=== PATIENT | male | born 2000 | race Caucasian/White ===

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

== ENCOUNTER 2019-11-18 16:16 | Inpatient (IN) | payer MEDICAID ==
[~2019-11-18] VITALS: Ht 175.3 cm; Wt 89.6 kg
[2019-11-18 17:04] LABS: Basophils # (auto) 0.1 10 ^3/uL (0-0.2); Basophils % (auto) 0.7 % (0.0-2.0); Eosinophils # (auto) 0.2 10 ^3/uL (0-0.8); Hematocrit 44.3 % (41.0-53.0); Hemoglobin 14.7 g/dL (13.5-17.5); Lymphocytes # (auto) 1.7 10 ^3/uL (0.4-5.4); Lymphocytes % (auto) 15.3 % (10.0-50.0); Mean Corpuscular Hemoglobin 28.9 pg (28.0-32.0); Mean Corpuscular Hgb Conc. 33.2 g/dL (32.0-36.0); Mean Corpuscular Volume 87.1 fL (80.0-100.0); Monocytes # (auto) 1.1 10 ^3/uL (0-1.3); Monocytes % (auto) 9.4 % (0.0-12.0); Neutrophils # (auto) 8.2 10 ^3/uL (1.6-8.6); Neutrophils % (auto) 72.6 % (37.0-80.0); Nucleated Red Blood Cells % 0.1 %; Platelet Count (auto) 254 10^3/uL (140-450); Red Blood Cells 5.08 10^6/uL (4.5-5.90); Red Cell Distribution Width 13.9 % (11.8-14.3); White Blood Cell 11.3 10^3/uL (4.4-10.8)
[2019-11-18 17:19] LABS: Albumin 3.6 g/dL (3.4-5.0); Calcium 9.3 mg/dL (8.5-10.1); Potassium 3.6 mmol/L (3.5-5.1)
[2019-11-18 17:22] LABS: BUN/Creatinine Ratio 8.6; Bilirubin, Total 0.9 mg/dL (0.2-1.0); Total Protein 8.2 g/dL (6.4-8.2)
[2019-11-18] MEDS ORDERED: MORPHINE SULFATE 4 MG/ML SYR/VIAL IV ONE (18:30)
[2019-11-18] MEDS ORDERED: ONDANSETRON HCL 4 MG/2 ML VIAL IV ONE (18:30)
[2019-11-18] MEDS ORDERED: PIPERACILLIN-TAZOB 3.375GM 100 ML IV ONE (18:30)
[2019-11-18] MEDS ORDERED: SODIUM CHLORIDE 0.9% 1,000 ML IV ONE (18:30)
[2019-11-18 19:04] LABS: INR 1.06 (0.9-1.15); Partial Thromboplastin Time 32.2 sec (23.64-32.05)
[2019-11-18] MEDS ORDERED: ONDANSETRON HCL 4 MG/2 ML VIAL IV PRN (19:45)
[2019-11-18] MEDS ORDERED: DOCUSATE SOD 100 MG CAP PO PRN (19:45)
[2019-11-18] MEDS ORDERED: NITROGLYCERIN 0.4 MG SL TAB SL PRN (19:45)
[2019-11-18] MEDS ORDERED: ALUM & MAG HYDROX-SIMETH LIQ(MAALOX) 30 ML PO PRN (19:45)
[2019-11-18] MEDS ORDERED: MORPHINE SULF INJ 2 MG/ML SYRINGE 1ML IV PRN (19:45)
[2019-11-18] MEDS ORDERED: HYDROcodone-ACET 5/325MG TAB PO PRN (19:45)
[2019-11-18 21:05] VITALS: BP 120/65
[2019-11-18 21:08] LABS: Urine Bacteria NONE SEEN /hpf (None Seen); Urine Blood Negative /uL (Negative); Urine Mucus FEW (None Seen); Urine Specific Gravity 1.028 (1.001-1.035); Urine WBC 1 /hpf (0 - 3)
[2019-11-18 21:21] LABS: Amphetamine Screen, Urine POSITIVE (NEGATIVE); Barbiturate Scree,Urine NEGATIVE (NEGATIVE); Benzodiazephine Screen, Urine NEGATIVE (NEGATIVE); Cannabinoid Screen, Urine POSITIVE (NEGATIVE); Cocaine Screen, Urine NEGATIVE (NEGATIVE); Opiate Scree,Urine NEGATIVE (NEGATIVE); Phencyclidine Screen, Urine NEGATIVE (NEGATIVE)
[2019-11-18] MEDS: metroNIDAZOLE 500MG/100ML 100 ML IV SCH (23:18)
[2019-11-18] MEDS: D5W/LACTATED RINGERS 1,000 ML IV SCH (23:18)
[2019-11-19 05:00] VITALS: BP 11/56
[2019-11-19] MEDS: D5W/LACTATED RINGERS 1,000 ML IV SCH (05:19)
[2019-11-19] MEDS: metroNIDAZOLE 500MG/100ML 100 ML IV SCH (05:20)
[2019-11-19 07:15] LABS: Basophils # (auto) 0.1 10 ^3/uL (0-0.2); Basophils % (auto) 0.5 % (0.0-2.0); Eosinophils # (auto) 0.3 10 ^3/uL (0-0.8); Eosinophils % (auto) 3.3 % (0.0-7.0); Hematocrit 39.9 % (41.0-53.0); Hemoglobin 13.8 g/dL (13.5-17.5); Lymphocytes # (auto) 1.6 10 ^3/uL (0.4-5.4); Lymphocytes % (auto) 15.7 % (10.0-50.0); Mean Corpuscular Hgb Conc. 34.7 g/dL (32.0-36.0); Mean Corpuscular Volume 86.5 fL (80.0-100.0); Monocytes % (auto) 9.9 % (0.0-12.0); Neutrophils % (auto) 70.6 % (37.0-80.0); Platelet Count (auto) 222 10^3/uL (140-450); Red Blood Cells 4.61 10^6/uL (4.5-5.90); Red Cell Distribution Width 13.8 % (11.8-14.3); White Blood Cell 9.9 10^3/uL (4.4-10.8)
[2019-11-19 07:36] LABS: Potassium 3.4 mmol/L (3.5-5.1)
[2019-11-19 07:43] LABS: INR 1.07 (0.9-1.15); Partial Thromboplastin Time 34.5 sec (23.64-32.05)
[2019-11-19 07:44] LABS: BUN/Creatinine Ratio 6.9; Calcium 8.3 mg/dL (8.5-10.1); Magnesium 2.2 mg/dL (1.6-2.6); Phosphorus 2.8 mg/dL (2.5-4.90); Total Protein 7.1 g/dL (6.4-8.2)
[2019-11-19] MEDS ORDERED: ceFAZolin 1GM/50ML 50 ML IV ONE (08:09)
[2019-11-19] MEDS ORDERED: POVIDONE IODINE 10 % TOPICAL OINT 30GM TOP ONE (08:13)
[2019-11-19] MEDS ORDERED: PHENYLEPHRINE HCL 10 MG/ML VL IV ONE (08:25)
[2019-11-19] MEDS ORDERED: NEOSTIGMINE 1 MG/ML INJ (10mg/10ML VIAL) IV ONE (08:25)
[2019-11-19] MEDS ORDERED: GLYCOPYRROLATE 0.2 MG/ML 1ML VIAL IV ONE (08:25)
[2019-11-19] MEDS ORDERED: fentaNYL CITRATE 100 MCG/2 ML VL ONE (08:36)
[2019-11-19] MEDS ORDERED: MIDAZOLAM HCL 1MG/1ML-2 ML VIAL ONE (08:36)
[2019-11-19] MEDS ORDERED: MEPERIDINE HCL (50 MG/ML) 1 ML VIAL ONE (08:37)
[2019-11-19] MEDS ORDERED: DexAMETHasone SOD PHOS 10MG/1ML VIAL INJ ONE (08:55)
[2019-11-19] MEDS ORDERED: PROPOFOL 10 MG/ML 20 ML IV ONE (08:55)
[2019-11-19 09:00] VITALS: BP 110/58
[2019-11-19] MEDS ORDERED: cefTRIAXone 1GM/50ML D5W 50 ML IV SCH (09:00)
[2019-11-19] MEDS ORDERED: ROCURONIUM 10MG/ML 10ML VIAL IV ONE (09:00)
[2019-11-19] MEDS: HYDROmorphone HCL 2 MG/ML VL IV PRN ×6 (09:58→20:31)
[2019-11-19] MEDS ORDERED: LABETALOL HCL 5 MG/ML 4ML SYRINGE IV PRN (10:00)
[2019-11-19] MEDS ORDERED: ENOXAPARIN SOD 40 MG/0.4 ML SYRINGE SC SCH (10:00)
[2019-11-19] MEDS ORDERED: D5W/SOD CHL 0.45%/KCL 20MEQ 1,000 ML IV SCH (10:00)
[2019-11-19] MEDS ORDERED: KETOROLAC TROMETH 15 mg/ml 1ML VL IV ONE (10:00)
[2019-11-19] MEDS ORDERED: ONDANSETRON HCL 4 MG/2 ML VIAL IV PRN ×2 (10:00)
[2019-11-19] MEDS ORDERED: HYDROmorphone HCL 2 MG/ML VL IV PRN (10:00)
[2019-11-19] MEDS ORDERED: ePHEDrine SULFATE 50 MG/ML AMP IV PRN (10:00)
[2019-11-19] MEDS ORDERED: MORPHINE SULFATE 4 MG/ML SYR/VIAL IV PRN (10:00)
[2019-11-19] MEDS ORDERED: MIDAZOLAM HCL 1MG/1ML-2 ML VIAL IV PRN (10:00)
[2019-11-19] MEDS: ceFAZolin 1GM/50ML 50 ML IV SCH ×2 (12:34→23:00)
[2019-11-19 13:00] VITALS: BP 128/73
[2019-11-19] MEDS ORDERED: ACETAMINOPHEN 500 MG TAB PO PRN (13:00)
[2019-11-19] MEDS ORDERED: metroNIDAZOLE 500MG/100ML 100 ML IV SCH (14:00)
[2019-11-19] MEDS: D5W/SOD CHL 0.45%/KCL 20MEQ 1,000 ML IV SCH ×2 (14:00→23:37)
[2019-11-19 16:48] VITALS: BP 127/71
[2019-11-19 22:00] VITALS: BP 109/57
[2019-11-20] MEDS: TEMAZEPAM 15 MG CAP PO PRN ×2 (01:32→21:59)
[2019-11-20] MEDS: HYDROcodone-ACET 5/325MG TAB PO PRN (01:33)
[2019-11-20] MEDS: HYDROmorphone HCL 2 MG/ML VL IV PRN ×5 (02:45→18:53)
[2019-11-20 05:00] VITALS: BP 112/59
[2019-11-20] MEDS: ceFAZolin 1GM/50ML 50 ML IV SCH ×3 (05:56→21:53)
[2019-11-20 06:56] LABS: Basophils # (auto) 0 10 ^3/uL (0-0.2); Basophils % (auto) 0.2 % (0.0-2.0); Eosinophils # (auto) 0.1 10 ^3/uL (0-0.8); Eosinophils % (auto) 0.5 % (0.0-7.0); Hematocrit 37.5 % (41.0-53.0); Hemoglobin 12.8 g/dL (13.5-17.5); Lymphocytes # (auto) 1.3 10 ^3/uL (0.4-5.4); Mean Corpuscular Hemoglobin 29.7 pg (28.0-32.0); Mean Corpuscular Hgb Conc. 34.2 g/dL (32.0-36.0); Mean Corpuscular Volume 86.7 fL (80.0-100.0); Monocytes % (auto) 9.3 % (0.0-12.0); Platelet Count (auto) 226 10^3/uL (140-450); Red Blood Cells 4.32 10^6/uL (4.5-5.90); Red Cell Distribution Width 13.7 % (11.8-14.3); White Blood Cell 10.4 10^3/uL (4.4-10.8)
[2019-11-20 07:16] LABS: BUN/Creatinine Ratio 7.6; Calcium 8.5 mg/dL (8.5-10.1); Potassium 3.8 mmol/L (3.5-5.1)
[2019-11-20 09:00] VITALS: BP 105/53
[2019-11-20] MEDS: D5W/SOD CHL 0.45%/KCL 20MEQ 1,000 ML IV SCH (10:41)
[2019-11-20 12:31] VITALS: BP 104/56
[2019-11-20 17:00] VITALS: BP 122/71
[2019-11-20 21:59] VITALS: BP 127/78
[2019-11-21] MEDS: HYDROmorphone HCL 2 MG/ML VL IV PRN ×5 (00:10→22:39)
[2019-11-21 05:00] VITALS: BP 131/69
[2019-11-21] MEDS: ceFAZolin 1GM/50ML 50 ML IV SCH ×3 (05:28→22:00)
[2019-11-21] MEDS: D5W/SOD CHL 0.45%/KCL 20MEQ 1,000 ML IV SCH ×4 (05:37→20:47)
[2019-11-21 09:00] VITALS: BP 130/78
[2019-11-21 13:00] VITALS: BP 131/72
[2019-11-21] MEDS: HYDROcodone-ACET 5/325MG TAB PO PRN (14:40)
[2019-11-21 16:59] VITALS: BP 136/72
[2019-11-21 21:40] VITALS: BP 125/66
[2019-11-22] MEDS: HYDROmorphone HCL 2 MG/ML VL IV PRN ×3 (02:39→11:38)
[2019-11-22 04:51] VITALS: BP 125/77
[2019-11-22] MEDS: ceFAZolin 1GM/50ML 50 ML IV SCH (05:47)
[2019-11-22 06:35] LABS: Basophils # (auto) 0 10 ^3/uL (0-0.2); Basophils % (auto) 0.5 % (0.0-2.0); Eosinophils # (auto) 0.4 10 ^3/uL (0-0.8); Hematocrit 42.4 % (41.0-53.0); Hemoglobin 14.5 g/dL (13.5-17.5); Lymphocytes # (auto) 1.6 10 ^3/uL (0.4-5.4); Lymphocytes % (auto) 20.9 % (10.0-50.0); Mean Corpuscular Hemoglobin 29.4 pg (28.0-32.0); Mean Corpuscular Hgb Conc. 34.2 g/dL (32.0-36.0); Mean Corpuscular Volume 86.2 fL (80.0-100.0); Monocytes % (auto) 13.6 % (0.0-12.0); Neutrophils # (auto) 4.4 10 ^3/uL (1.6-8.6); Platelet Count (auto) 287 10^3/uL (140-450); Red Blood Cells 4.93 10^6/uL (4.5-5.90); Red Cell Distribution Width 13.5 % (11.8-14.3); White Blood Cell 7.4 10^3/uL (4.4-10.8)
[2019-11-22 09:00] VITALS: BP 134/71
[2019-11-22] MEDS: D5W/SOD CHL 0.45%/KCL 20MEQ 1,000 ML IV SCH (11:00)
[2019-11-22 12:30] VITALS: BP 116/68
[2019-11-22 12:56] VITALS: BP 134/71
== END 2019-11-22 13:32 | disposition home or self-care (01) | DRG 233 ==
LOC: ER 16:16 → OVERFLOW 16:17 → WEST WING 20:54
PROVIDERS: ADMIT Hospitalist; ATTEND Internal Medicine
PROC: 3E013GC Introduction of Other Therapeutic Substance into Subcutaneous Tissue, Percutaneous Approach (ICD-10-PCS; 2019-11-19)
PROC: 0DTJ4ZZ Resection of Appendix, Percutaneous Endoscopic Approach (ICD-10-PCS; principal; 2019-11-19 08:40)
DX: K35.30 Acute appendicitis with localized peritonitis, without perforation or gangrene (principal); F20.9 Schizophrenia, unspecified; D72.829 Elevated white blood cell count, unspecified; E66.9 Obesity, unspecified; F12.10 Cannabis abuse, uncomplicated; F15.10 Other stimulant abuse, uncomplicated; F17.210 Nicotine dependence, cigarettes, uncomplicated; Z68.53 Body mass index [BMI] pediatric, 85th percentile to less than 95th percentile for age
CPT/HCPCS: 36415; 71045; 74176; 80048; 80053; 80307; 81001; 83735; 84100; 84132; 85025; 85610; 85730; 88302; G0378; J0690; J1100; J2250; J2405; J2543; J2704; J3490

== ENCOUNTER 2022-01-20 01:18 | Emergency (ER) | payer MEDICAID ==
[~2022-01-20] VITALS: Ht 175.3 cm; Wt 82.6 kg
[2022-01-20 02:26] VITALS: BP 124/88
[2022-01-20 02:53] LABS: Urine Bacteria NONE SEEN /hpf (None Seen); Urine Blood Negative /uL (Negative); Urine Mucus FEW (None Seen); Urine Specific Gravity 1.034 (1.001-1.035); Urine WBC 4 /hpf (0 - 3)
== END 2022-01-20 13:47 | disposition left against medical advice (07) ==
LOC: ER 01:18
DX: R10.9 Unspecified abdominal pain (principal); M54.50 Low back pain, unspecified; Z53.21 Procedure and treatment not carried out due to patient leaving prior to being seen by health care provider
CPT/HCPCS: 81001

== ENCOUNTER 2022-01-20 16:34 | Emergency (ER) | payer MEDICAID ==
[~2022-01-20] VITALS: Ht 175.3 cm; Wt 59.9 kg
[2022-01-20 16:59] VITALS: BP 133/82
== END 2022-01-20 22:15 | disposition left against medical advice (07) ==
LOC: ER 16:35
DX: R10.9 Unspecified abdominal pain (principal); Z53.21 Procedure and treatment not carried out due to patient leaving prior to being seen by health care provider